=== PATIENT | female | born 1995 | race Hispanic/Latino ===

== ENCOUNTER → 2017-09-24 | Outpatient (CLI) | payer BC | END | disposition home or self-care (01) | LOC: RAH 09:12 → EDBD 09:30 | PROVIDERS: ATTEND Family Medicine | DX: R10.9 Unspecified abdominal pain (principal) | CPT/HCPCS: 76700 ==

== ENCOUNTER 2019-11-07 19:42 | Observation (INO) | payer BC, MEDICAID ==
[~2019-11-07] VITALS: Ht 162.6 cm; Wt 123.8 kg
[2019-11-07 20:24] LABS: APPEARANCE,URINE Clear (CLEAR); BILIRUBIN,URINE Negative (NEGATIVE); COLOR,URINE Yellow (YELLOW); GLUCOSE, URINE (UA) Negative (NEGATIVE); KETONES,URINE Negative (NEGATIVE); LEUKOCYTE ESTERASE ,URINE Negative (NEGATIVE); NITRATE,URINE Negative (NEGATIVE); OCCULT BLOOD,URINE Negative (NEGATIVE); PH,URINE 6.5 (5.0-8.0); PROTEIN,URINE Negative (NEGATIVE); UROBILINOGEN,URINE 0.2 mg/dL (0.2-1.0)
== END 2019-11-07 21:00 | disposition home or self-care (01) ==
LOC: EDH 19:42 → LDH 19:43
PROVIDERS: ADMIT Obstetrics & Gynecology; ATTEND Obstetrics & Gynecology
DX: O36.8120 Decreased fetal movements, second trimester, not applicable or unspecified (principal); Z3A.24 24 weeks gestation of pregnancy
CPT/HCPCS: 81003; 99284; G0378

== ENCOUNTER 2019-12-17 21:29 | Observation (INO) | payer MEDICAID ==
[~2019-12-17] VITALS: Ht 162.6 cm; Wt 129.3 kg
[2019-12-17] MEDS ORDERED: LACTATED RINGERS 1000ML 1,000 ML IV PRN (21:45)
[2019-12-17 21:52] VITALS: BP 114/53
== END 2019-12-18 01:20 | disposition home or self-care (01) ==
LOC: EDH 21:29 → LDH 21:47
PROVIDERS: ADMIT Obstetrics & Gynecology; ATTEND Obstetrics & Gynecology
DX: O26.893 Other specified pregnancy related conditions, third trimester (principal); R10.30 Lower abdominal pain, unspecified; R51 Headache; Z3A.30 30 weeks gestation of pregnancy
CPT/HCPCS: 80305; 81001; 96360; 99284; G0378 ×4; J7120

== ENCOUNTER 2019-12-25 17:15 | Observation (INO) | payer MEDICAID ==
[~2019-12-25] VITALS: Ht 157.5 cm; Wt 129.7 kg
[2019-12-25 18:30] LABS: APPEARANCE,URINE Cloudy (CLEAR); BILIRUBIN,URINE Negative (NEGATIVE); COLOR,URINE Yellow (YELLOW); GLUCOSE, URINE (UA) Negative (NEGATIVE); KETONES,URINE Negative (NEGATIVE); LEUKOCYTE ESTERASE ,URINE Trace (NEGATIVE); NITRATE,URINE Negative (NEGATIVE); OCCULT BLOOD,URINE Negative (NEGATIVE); PH,URINE 7.5 (5.0-8.0); PROTEIN,URINE Negative (NEGATIVE); UROBILINOGEN,URINE 0.2 mg/dL (0.2-1.0)
[2019-12-25 18:42] LABS: RBC,URINE 0-1 /HPF (0-1)
[2019-12-25 18:43] LABS: BACTERIA,URINE Few /HPF (None Seen)
[2019-12-25 18:44] LABS: AMORPHOUS SEDIMENT,UR Rare /LPF (None Seen); COARSE GRANULAR CASTS,URINE 0-2 /LPF (None Seen); SQUAMOUS EPITHELIAL CELL,UR Few /HPF (0-2)
[2019-12-25] MEDS: LACTATED RINGERS 1000ML 1,000 ML IV PRN ×2 (19:07→20:25)
[2019-12-25] MEDS ORDERED: TERBUTALINE SULFATE VIAL 1MG/ML SQ ONE (20:14)
[2019-12-25] MEDS ORDERED: TERBUTALINE SULFATE VIAL 1MG/ML SQ PRN (20:15)
[2019-12-25] MEDS ORDERED: ACETAMINOPHEN 325 MG TAB PO PRN (20:45)
== END 2019-12-25 23:20 | disposition home or self-care (01) ==
LOC: EDH 17:15 → LDH 17:39
PROVIDERS: ADMIT Obstetrics & Gynecology; ATTEND Obstetrics & Gynecology
DX: O60.03 Preterm labor without delivery, third trimester (principal); Z3A.31 31 weeks gestation of pregnancy
CPT/HCPCS: 81001; 82948; 96372; 99284; G0378 ×6; J3105; J7120 ×2; 96360

== ENCOUNTER 2020-01-12 23:18 | Observation (INO) | payer MEDICAID ==
[~2020-01-12] VITALS: Ht 162.6 cm; Wt 132.0 kg
[2020-01-12 23:55] LABS: APPEARANCE,URINE Clear (CLEAR); BILIRUBIN,URINE Negative (NEGATIVE); COLOR,URINE Yellow (YELLOW); GLUCOSE, URINE (UA) Negative (NEGATIVE); KETONES,URINE Negative (NEGATIVE); LEUKOCYTE ESTERASE ,URINE Small (NEGATIVE); NITRATE,URINE Negative (NEGATIVE); OCCULT BLOOD,URINE Negative (NEGATIVE); PH,URINE 7.5 (5.0-8.0); PROTEIN,URINE Negative (NEGATIVE); UROBILINOGEN,URINE 0.2 mg/dL (0.2-1.0)
[2020-01-13 00:19] LABS: BACTERIA,URINE Few /HPF (None Seen); RBC,URINE 0-1 /HPF (0-1)
[2020-01-13 00:20] LABS: AMORPHOUS SEDIMENT,UR Few /LPF (None Seen)
== END 2020-01-13 00:46 | disposition home or self-care (01) ==
LOC: EDH 23:18 → LDH 23:35
PROVIDERS: ADMIT Obstetrics & Gynecology; ATTEND Obstetrics & Gynecology
DX: O26.893 Other specified pregnancy related conditions, third trimester (principal); R10.2 Pelvic and perineal pain; M54.5 Low back pain; Z3A.33 33 weeks gestation of pregnancy
CPT/HCPCS: 81001; 99284; G0378

== ENCOUNTER 2020-01-18 13:46 | Observation (INO) | payer MEDICAID ==
[~2020-01-18] VITALS: Ht 162.6 cm; Wt 130.6 kg
[2020-01-18 14:36] LABS: APPEARANCE,URINE Cloudy (CLEAR); BILIRUBIN,URINE Negative (NEGATIVE); COLOR,URINE Yellow (YELLOW); GLUCOSE, URINE (UA) Negative (NEGATIVE); KETONES,URINE Negative (NEGATIVE); LEUKOCYTE ESTERASE ,URINE Small (NEGATIVE); NITRATE,URINE Negative (NEGATIVE); OCCULT BLOOD,URINE Negative (NEGATIVE); PH,URINE 7.5 (5.0-8.0); PROTEIN,URINE Trace mg/dL (NEGATIVE)
[2020-01-18 14:55] LABS: RBC,URINE 0-1 /HPF (0-1)
[2020-01-18 14:56] LABS: BACTERIA,URINE Moderate /HPF (None Seen)
[2020-01-18 14:57] LABS: SQUAMOUS EPITHELIAL CELL,UR Moderate /HPF (0-2)
[2020-01-18 14:58] LABS: AMORPHOUS SEDIMENT,UR Few /LPF (None Seen)
[2020-01-18] MEDS ORDERED: LACTATED RINGERS 1000ML IV SCH (15:15)
[2020-01-18] MEDS ORDERED: PROMETHAZINE HCL 25 MG/ML 1ML AMPULE IM SCH (15:15)
== END 2020-01-18 15:55 | disposition home or self-care (01) ==
LOC: EDH 13:46 → LDH 13:47
PROVIDERS: ADMIT Obstetrics & Gynecology; ATTEND Obstetrics & Gynecology
DX: O21.9 Vomiting of pregnancy, unspecified (principal); O24.419 Gestational diabetes mellitus in pregnancy, unspecified control; M54.5 Low back pain; Z86.19 Personal history of other infectious and parasitic diseases; Z3A.34 34 weeks gestation of pregnancy
CPT/HCPCS: 81001; 87088; 96360; 99284; G0378 ×2; J7120; 96372

== ENCOUNTER 2020-01-30 17:45 | Observation (INO) | payer MEDICAID ==
[~2020-01-30] VITALS: Ht 162.6 cm; Wt 132.4 kg
[2020-01-30 18:30] VITALS: BP 127/61
[2020-01-30 19:23] LABS: APPEARANCE,URINE Clear (CLEAR); BILIRUBIN,URINE Negative (NEGATIVE); COLOR,URINE Yellow (YELLOW); GLUCOSE, URINE (UA) Negative (NEGATIVE); KETONES,URINE Negative (NEGATIVE); LEUKOCYTE ESTERASE ,URINE Large (NEGATIVE); NITRATE,URINE Negative (NEGATIVE); OCCULT BLOOD,URINE Negative (NEGATIVE); PROTEIN,URINE Negative (NEGATIVE); UROBILINOGEN,URINE 0.2 mg/dL (0.2-1.0)
[2020-01-30 19:40] LABS: BACTERIA,URINE Few /HPF (None Seen); RBC,URINE None Seen /HPF (0-1)
[2020-01-30] MEDS ORDERED: PREN1TAB80 PO (20:14)
[2020-01-30] MEDS ORDERED: CALC500T13 PO (20:14)
[2020-01-30] MEDS ORDERED: LACTATED RINGERS 1000ML IV PRN (20:15)
[2020-01-30] MEDS ORDERED: SIMETHICONE 80 MG TAB.CHEW PO SCH (20:15)
[2020-01-30] MEDS ORDERED: CEFTRIAXONE SODIUM 1 GM IVP SCH (20:15)
[2020-01-30] MEDS ORDERED: MAG HYDROX/AL HYDROX/SIMETH ES 30 ML SUSP UDCUP ONE (21:05)
[2020-01-30] MEDS ORDERED: MAG HYDROX/AL HYDROX/SIMETH ES 30 ML SUSP UDCUP PO SCH (21:15)
== END 2020-01-30 22:25 | disposition home or self-care (01) ==
LOC: EDH 17:45 → LDH 17:46
PROVIDERS: ADMIT Obstetrics & Gynecology; ATTEND Obstetrics & Gynecology
DX: O26.893 Other specified pregnancy related conditions, third trimester (principal); R10.13 Epigastric pain; R19.7 Diarrhea, unspecified; O24.419 Gestational diabetes mellitus in pregnancy, unspecified control; Z86.19 Personal history of other infectious and parasitic diseases; Z3A.36 36 weeks gestation of pregnancy
CPT/HCPCS: 81001; 87088; 96361; 96374; 99284; G0378 ×4; J0696; J7120; 96360

== ENCOUNTER 2020-02-13 11:10 | Inpatient (IN) | payer MEDICAID ==
[~2020-02-13] VITALS: Ht 162.6 cm; Wt 136.1 kg
[~2020-02-13 11:10] MED LIST: CALC500T13 PO; PREN1TAB80 PO
[2020-02-13 11:53] VITALS: BP 129/74
[2020-02-13 12:04] LABS: BASOPHILS % (AUTO) 0.3 % (0.0-5.0); EOSINOPHILS % (AUTO) 1.4 % (0.0-8.0); HEMATOCRIT 37.4 % (36-48); LYMPHOCYTES % (AUTO) 19.6 % (21.0-51.0); MEAN CORPUSCULAR HGB CONC 33.4 g/dL (32.0-36.0); MEAN CORPUSCULAR VOLUME 92.8 fL (79-99); MONOCYTES % (AUTO) 9.2 % (3.0-13.0); NEUTROPHILS % (AUTO) 68.4 % (40.0-77.0); PLATELET COUNT (AUTO) 188 K/uL (130-400); RED BLOOD CELL COUNT(AUTO) 4.03 MIL/uL (4.00-5.50); RED CELL DISTRIBUTION WIDTH 13.6 % (11.0-15.5); WHITE BLOOD COUNT (AUTO) 7.4 K/uL (4.8-10.8)
[2020-02-13 12:08] LABS: APPEARANCE,URINE Clear (CLEAR); BILIRUBIN,URINE Negative (NEGATIVE); COLOR,URINE Yellow (YELLOW); GLUCOSE, URINE (UA) Negative (NEGATIVE); KETONES,URINE Negative (NEGATIVE); LEUKOCYTE ESTERASE ,URINE Small (NEGATIVE); NITRATE,URINE Negative (NEGATIVE); OCCULT BLOOD,URINE Nonhemolyzed Trace (NEGATIVE); PROTEIN,URINE Negative (NEGATIVE); UROBILINOGEN,URINE 0.2 mg/dL (0.2-1.0)
[2020-02-13 12:15] LABS: BACTERIA,URINE Few /HPF (None Seen); INR 0.87 (0.85-1.15); PARTIAL THROMBOPLASTIN TIME 23.8 SEC (26.3-35.5); PROTHROMBIN TIME 9.4 SEC (9.6-11.6); RBC,URINE 0-1 /HPF (0-1); SQUAMOUS EPITHELIAL CELL,UR Moderate /HPF (0-2)
[2020-02-13 12:49] LABS: BILIRUBIN,TOTAL 0.1 mg/dL (0.2-1.0); CREATININE 0.6 mg/dL (0.5-1.5); POTASSIUM 3.9 mmol/L (3.5-5.1); URIC ACID 5.7 mg/dL (2.6-7.2)
[2020-02-13] MEDS ORDERED: LACTATED RINGERS 500 ML 500 ML IV PRN (13:00)
[2020-02-13] MEDS ORDERED: NALOXONE HCL 0.4 MG/1 ML ML IV PRN (13:00)
[2020-02-13] MEDS ORDERED: ROPIVACAINE 0.2% 100ML VIAL 100 ML EP PRN (13:00)
[2020-02-13] MEDS ORDERED: EPHEDRINE SULFATE 50 MG/ML AMPULE IVP PRN (13:00)
[2020-02-13] MEDS: LACTATED RINGERS 1000ML 1,000 ML IV PRN ×2 (14:56→20:12)
[2020-02-13] MEDS ORDERED: MISOPROSTOL 100 MCG TABLET VG PRN (15:00)
[2020-02-13] MEDS: BUTORPHANOL TARTRATE 2 MG/ML IVP PRN (20:11)
[2020-02-13] MEDS ORDERED: MISOPROSTOL 25 MCG TABLET VG SCH (21:00)
[2020-02-13] MEDS ORDERED: MISOPROSTOL 100 MCG TABLET VG SCH (22:00)
[2020-02-14] MEDS: LACTATED RINGERS 1000ML 1,000 ML IV PRN (03:38)
[2020-02-14] MEDS: BUTORPHANOL TARTRATE 2 MG/ML IVP PRN (03:48)
[2020-02-14] MEDS ORDERED: OXYTOCIN 10 USP UNITS/ML 20 UNIT in LACTATED RINGERS 1000ML 1,000 ML IV SCH (04:00)
[2020-02-14] MEDS ORDERED: OXYTOCIN-LR 20 UNITS/1000 ML 1,000 ML IV ONE ×2 (04:55→10:04)
[2020-02-14 08:14] LABS: HEPATITIS Bs ANTIGEN SCREEN P Negative (Negative)
[2020-02-14] MEDS ORDERED: FENTANYL CITRATE PF 50 MCG/1 ML 2ML VIAL ONE (08:41)
[2020-02-14] MEDS ORDERED: OXYTOCIN-LR 20 UNITS/1000 ML 1,000 ML IV SCH (10:00)
[2020-02-14] MEDS ORDERED: TRANEXAMIC ACID 1000MG/10ML IV PRN (10:00)
[2020-02-14] MEDS ORDERED: MISOPROSTOL 200 MCG TABLET PO PRN (10:00)
[2020-02-14] MEDS ORDERED: METHYLERGONOVINE MALEATE 0.2 MG/1 ML ML IM PRN (10:00)
[2020-02-14] MEDS ORDERED: ONDANSETRON HCL 4 MG/2 ML VIAL IVP PRN (11:45)
[2020-02-14] MEDS ORDERED: ACETAMINOPHEN 325 MG TAB PO PRN (14:45)
[2020-02-14] MEDS ORDERED: LANOLIN 30GM OINTMENT TP PRN (14:45)
[2020-02-14] MEDS ORDERED: WITCH HAZEL 1 PAD TP PRN (14:45)
[2020-02-14] MEDS ORDERED: MEASLES/MUMPS/RUBELLA VACCINE, LIVE 0.5 ML/VIAL SQ PRN (14:45)
[2020-02-14] MEDS ORDERED: BENZOCAINE/LANOLIN/ALOE VERA 60 ML AEROSOL TP PRN (14:45)
[2020-02-14] MEDS ORDERED: ACETAMINOPHEN-CODEINE 300/30MG TAB PO PRN (14:45)
[2020-02-14] MEDS ORDERED: DIPH,PERTUSS(ACELL),TET VAC/PF 0.5 ML VIAL IM PRN (14:45)
[2020-02-14 16:45] VITALS: BP 132/76
[2020-02-14] MEDS: IBUPROFEN 600 MG TABLET PO PRN ×2 (16:52→23:40)
[2020-02-14 19:30] VITALS: BP 128/76
[2020-02-14] MEDS: DOCUSATE SODIUM 100 MG CAP PO SCH (21:06)
[2020-02-14 23:40] VITALS: BP 130/79
[2020-02-15 03:07] VITALS: BP 107/53
[2020-02-15 07:35] VITALS: BP 121/70
[2020-02-15] MEDS: DOCUSATE SODIUM 100 MG CAP PO SCH ×2 (09:04→22:42)
[2020-02-15] MEDS: IBUPROFEN 600 MG TABLET PO PRN ×3 (09:05→22:45)
[2020-02-15 10:59] VITALS: BP 143/87
[2020-02-15 16:30] VITALS: BP 127/63
[2020-02-15 19:59] VITALS: BP 136/79
[2020-02-15 23:54] VITALS: BP 135/71
[2020-02-16 04:01] VITALS: BP 121/68
[2020-02-16 06:58] VITALS: BP 117/85
[2020-02-16] MEDS: DOCUSATE SODIUM 100 MG CAP PO SCH (08:32)
[2020-02-16] MEDS: IBUPROFEN 600 MG TABLET PO PRN (08:33)
--- NOTE | 2020-02-16 11:00 | NUR ---
pt is discharged. verbal and written discharge instructions given, pls refer to [facility]. informed of the follow up appointment, prescription given. informed to call the doctor for further concerns. pt voiced understanding to all things discussed. Addendum: 02/16/20 at 1503 by NELLY PETE RN Amended: Links added.
[2020-02-16 11:43] VITALS: BP 134/69
--- NOTE | 2020-02-16 11:55 | NUR ---
pt is dismissed in stable condition, brought to private car via wheelchair by Rufina Holden pcp Addendum: 02/16/20 at 1504 by NELLY PETE RN Amended: Links added.
== END 2020-02-16 11:55 | disposition home or self-care (01) | DRG 560 ==
LOC: LDH 11:10 → WSH 02-14 16:45 → PREOBSVTOIN 02-25 11:08
PROVIDERS: ADMIT Obstetrics & Gynecology; ATTEND Obstetrics & Gynecology
PROC: 10E0XZZ Delivery of Products of Conception, External Approach (ICD-10-PCS; principal; 2020-02-14)
PROC: 0KQM0ZZ Repair Perineum Muscle, Open Approach (ICD-10-PCS; 2020-02-14)
PROC: 3E0P7VZ Introduction of Hormone into Female Reproductive, Via Natural or Artificial Opening (ICD-10-PCS; 2020-02-14)
PROC: 3E033VJ Introduction of Other Hormone into Peripheral Vein, Percutaneous Approach (ICD-10-PCS; 2020-02-14)
PROC: 10907ZC Drainage of Amniotic Fluid, Therapeutic from Products of Conception, Via Natural or Artificial Opening (ICD-10-PCS; 2020-02-14)
PROC: 3E0234Z Introduction of Serum, Toxoid and Vaccine into Muscle, Percutaneous Approach (ICD-10-PCS; 2020-02-14)
PROC: 3E0134Z Introduction of Serum, Toxoid and Vaccine into Subcutaneous Tissue, Percutaneous Approach (ICD-10-PCS; 2020-02-14)
PROC: 3E0R3BZ Introduction of Anesthetic Agent into Spinal Canal, Percutaneous Approach (ICD-10-PCS; 2020-02-14)
PROC: 00HU33Z Insertion of Infusion Device into Spinal Canal, Percutaneous Approach (ICD-10-PCS; 2020-02-14)
DX: O14.04 Mild to moderate pre-eclampsia, complicating childbirth (principal); O24.420 Gestational diabetes mellitus in childbirth, diet controlled; O69.81X0 Labor and delivery complicated by cord around neck, without compression, not applicable or unspecified; O70.1 Second degree perineal laceration during delivery; O99.214 Obesity complicating childbirth; E66.9 Obesity, unspecified; Z3A.38 38 weeks gestation of pregnancy; Z37.0 Single live birth; Z23 Encounter for immunization
CPT/HCPCS: 36415; 76805; 80053; 81001; 82948; 84550; 85025; 85384; 85610; 85730; 86592; 86850; 86900; 86901; 87088; 87340; A4314; G0378; J0595; J2210; J2405; J2590; J3010; J3490; J7120

== ENCOUNTER 2024-02-07 21:35 | Emergency (ER) | payer MEDICAID, OTHER ==
[~2024-02-07] VITALS: Ht 162.6 cm; Wt 111.6 kg
[2024-02-07 21:55] LABS: APPEARANCE,URINE CLEAR (CLEAR); BILIRUBIN,URINE NEGATIVE (NEGATIVE); COLOR,URINE COLORLESS (YELLOW); GLUCOSE, URINE (UA) NEGATIVE (NEGATIVE); KETONES,URINE NEGATIVE (NEGATIVE); LEUKOCYTE ESTERASE ,URINE NEGATIVE Leu/uL (NEGATIVE); NITRATE,URINE NEGATIVE (NEGATIVE); OCCULT BLOOD,URINE SMALL (NEGATIVE); PH,URINE 5.5 (5.0-8.0); PROTEIN,URINE NEGATIVE (NEGATIVE); UROBILINOGEN,URINE 0.2 mg/dL (0.2-1.0)
[2024-02-07 21:58] LABS: ADD UA MICROSCOPIC YES
[2024-02-07 22:03] LABS: BACTERIA,URINE FEW /HPF (None Seen); RBC,URINE 0-1 /HPF (0-1); SQUAMOUS EPITHELIAL CELL,UR RARE /HPF (0-2)
[2024-02-07 22:05] LABS: BASOPHILS # (AUTO) 0.04 K/uL (0.00-0.20); BASOPHILS % (AUTO) 0.5 % (0.0-5.0); EOSINOPHILS # (AUTO) 0.52 K/uL (0.00-0.70); IMMATURE GRANULOCYTE ABSOLUTE 0.05 K/uL (0-1); LYMPHOCYTES # (AUTO) 2.4 K/uL (1.0-4.8); LYMPHOCYTES % (AUTO) 27.5 % (21.0-51.0); MEAN CORPUSCULAR HEMOGLOBIN 31.7 pg (27.0-33.0); MEAN CORPUSCULAR HGB CONC 33.8 g/dL (32.0-36.0); MEAN CORPUSCULAR VOLUME 93.5 fL (79-99); MONOCYTES # (AUTO) 0.5 K/uL (0.1-1.0); NEUTROPHILS # (AUTO) 5.1 K/uL (1.8-7.7); NEUTROPHILS % (AUTO) 59.4 % (40.0-77.0); PLATELET COUNT (AUTO) 185 K/uL (130-400); RED BLOOD CELL COUNT(AUTO) 4.17 MIL/uL (4.00-5.50); RED CELL DISTRIBUTION WIDTH 12.3 % (11.0-15.5); WHITE BLOOD COUNT (AUTO) 8.6 K/uL (4.8-10.8)
[2024-02-07 22:11] VITALS: TEMP 98.2
[2024-02-07 22:13] LABS: CREATININE 0.7 mg/dL (0.5-1.0)
[2024-02-07] MEDS: acetaMINOPHEN 500 MG TABLET PO ONE (22:33)
[2024-02-07] MEDS: 0.9%NACL 1000ML 1,000 ML IV ONE (22:34)
[2024-02-08 01:10] VITALS: BP 123/68; PULSE 67; RESP 19; O2SAT 100
== END 2024-02-08 01:13 | disposition home or self-care (01) ==
LOC: EDH 21:35
DX: O20.9 Hemorrhage in early pregnancy, unspecified (principal); O26.891 Other specified pregnancy related conditions, first trimester; R10.2 Pelvic and perineal pain; Z3A.01 Less than 8 weeks gestation of pregnancy; Z79.899 Other long term (current) drug therapy; Z98.890 Other specified postprocedural states
CPT/HCPCS: 99284; 76801; 80048; 84703; 84702; 85025; 86850; 86900; 86901; 81001; 81025; 36415; J7030

== ENCOUNTER 2024-03-30 20:44 | Emergency (ER) | payer OTHER ==
[~2024-03-30] VITALS: Ht 162.6 cm; Wt 118.4 kg
[2024-03-30 21:26] LABS: BASOPHILS # (AUTO) 0.03 K/uL (0.00-0.20); BASOPHILS % (AUTO) 0.4 % (0.0-5.0); EOSINOPHILS # (AUTO) 0.12 K/uL (0.00-0.70); EOSINOPHILS % (AUTO) 1.4 % (0.0-8.0); HEMATOCRIT 37.6 % (36-48); IMMATURE GRANULOCYTE ABSOLUTE 0.07 K/uL (0-1); LYMPHOCYTES # (AUTO) 1.1 K/uL (1.0-4.8); LYMPHOCYTES % (AUTO) 12.6 % (21.0-51.0); MEAN CORPUSCULAR HEMOGLOBIN 31.8 pg (27.0-33.0); MEAN CORPUSCULAR VOLUME 93.3 fL (79-99); MONOCYTES # (AUTO) 0.5 K/uL (0.1-1.0); MONOCYTES % (AUTO) 6.4 % (3.0-13.0); NEUTROPHILS # (AUTO) 6.5 K/uL (1.8-7.7); NEUTROPHILS % (AUTO) 78.4 % (40.0-77.0); PLATELET COUNT (AUTO) 161 K/uL (130-400); RED BLOOD CELL COUNT(AUTO) 4.03 MIL/uL (4.00-5.50); RED CELL DISTRIBUTION WIDTH 12.2 % (11.0-15.5); WHITE BLOOD COUNT (AUTO) 8.3 K/uL (4.8-10.8)
[2024-03-30 21:46] LABS: CREATININE 0.7 mg/dL (0.5-1.0); POTASSIUM 3.9 mmol/L (3.5-5.1)
[2024-03-30] MEDS: acetaMINOPHEN WITH coDEINE 1 TAB TAB PO ONE (22:36)
[2024-03-30 22:41] LABS: APPEARANCE,URINE CLOUDY (CLEAR); BILIRUBIN,URINE NEGATIVE (NEGATIVE); COLOR,URINE LIGHT-YELLOW (YELLOW); GLUCOSE, URINE (UA) NEGATIVE (NEGATIVE); KETONES,URINE NEGATIVE (NEGATIVE); LEUKOCYTE ESTERASE ,URINE 25 Leu/uL (NEGATIVE); NITRATE,URINE NEGATIVE (NEGATIVE); OCCULT BLOOD,URINE NEGATIVE (NEGATIVE); PH,URINE 6.5 (5.0-8.0); PROTEIN,URINE NEGATIVE (NEGATIVE); UROBILINOGEN,URINE 0.2 mg/dL (0.2-1.0)
[2024-03-30 22:56] LABS: ADD UA MICROSCOPIC YES
[2024-03-30] MEDS ORDERED: ACET-2079 PO (23:05)
[2024-03-30 23:06] LABS: BACTERIA,URINE RARE /HPF (None Seen); RBC,URINE 0-1 /HPF (0-1); SQUAMOUS EPITHELIAL CELL,UR MOD /HPF (0-2)
[2024-03-30 23:34] VITALS: BP 132/70; PULSE 82; RESP 18; TEMP 98.1; O2SAT 98
== END 2024-03-30 23:42 | disposition home or self-care (01) ==
LOC: EDH 20:44
DX: O20.9 Hemorrhage in early pregnancy, unspecified (principal); O26.891 Other specified pregnancy related conditions, first trimester; R51.9 Headache, unspecified; R10.2 Pelvic and perineal pain; R11.0 Nausea; Z3A.13 13 weeks gestation of pregnancy
CPT/HCPCS: 36415; 76801; 80048; 81001; 84702; 85025; 86850; 86900; 86901

== ENCOUNTER 2024-04-27 18:59 | Emergency (ER) | payer OTHER ==
[~2024-04-27] VITALS: Ht 160 cm; Wt 118.4 kg
[~2024-04-27 18:59] MED LIST changes: +ACET-2079 PO
[2024-04-27 19:27] VITALS: TEMP 98
--- NOTE | 2024-04-27 19:41 | ERN ---
ED Note History of Present Illness Stated Complaint: ABDOMINAL PAIN, 18WKS Chief Complaint: OB<20 weeks gest. Time Seen by MD: 19:05 Time Seen by Midlevel: 19:05 Dictation: The patient is a 29-year-old female with a history of inguinal hernia repair who presents to the emergency department with complaints of a periumbilical abdominal pain onset 4:45 p.m. today. Patient reports that yesterday she started with low back pain. Reports be [address] Luis. Patient denies any vaginal bleeding or discharge, fever, vomiting or diarrhea. Reports occasional nausea but nothing out of the ordinary. 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 Reported Medications Calcium Carbonate (Tums 500 mg Chew Tab) 1 Tab Tab.chew, 1 TAB PO DAILYDINNER PRN for HEARTBURN, TAB.CHEW 01/30/20 Vits W-Ca,Fe,FA(<1Mg) ( Vitamins) 1 Each Tablet, 1 EACH PO DAILY, TAB 01/30/20 Past Medical History Past Medical History: No Pertinent History Surgical History: Other Surgical History Other: RT INGUINAL HERNIA X 2; RT OVARIAN CYST LMP: Dec 24, 2023 : 2 Para: 1 Aborts: 0 RN Note Reviewed/Agreed w/PFSH: Yes Review of System Dictation Constitutional: Negative for fever,chills, and weight loss Eyes: Negative for injury, pain,redness, and discharge ENT: Negative for injury,pain or swelling Cardiovascular: Negative for chest pain, palpitations, and edema Respiratory: Negative for shortness of breath, cough, and wheezing, Abdomen/GI: Negative for , vomiting, diarrhea, and constipation. Positive for abdominal pain, nausea Back: Negative for injury and pain : Negative for injury, bleeding and discharge MS/Extremity: Negative for injury and deformity Skin: Negative for rash, and discoloration Neuro: Negative for headache, weakness, numbness, tingling, and seizure Psych: Negative for suicide ideation, homicidal ideation, and hallucinations Initial Vital Sign VS Vital Signs Date Time Temp Pulse Resp B/P (MAP) Pulse Ox O2 Delivery O2 Flow Rate FiO2 04/27/24 19:27 98.1 74 20 134/81 99 Room Air Physical Exam Dictation Vital Signs reviewed General Appearance: Alert, oriented x 3, no acute distress, well developed, no urished. Head and Face: non-traumatic. Eyes: PERRL, pink conjunctivas, eyelid no trauma, anterior chamber with arcus senilis. Ears: Pinnas intact and no signs of trauma or erythema ear canals clear and no discharge TM no erythema Nose: No discharge, no bleeding. Oropharynx: Mouth normal, tongue pink. pharynx clear,no erythema, tonsils no exudates, no abscesses noted, mucous me mbrane moist Neck: Supple, non-tender, no thyromegaly, no masses, no JVD, no bruits Breast:Deferred Chest:No tenderness, no crepitus, no paradoxical movement, no retractions Lungs:Clear, well-ventilated, symmetric, no rales, no wheezing, no rhonchi, no stridor, good breath sounds bilaterally Heart: Regular rate, regular rhythm, no murmur, no gallops Vascular: no peripheral edema, Abdomen: Soft, positive bowel sounds, nondistended, no guarding, nontender, no rebound, no masses no hepatomegaly, no splenomegaly, no Martínez's sign, no hernias. Rectal: Deferred Genital: Deferred Neurological: Normal speech, motor function intact, sensory function intact Musculoskeletal: Neck nontender, full range of motion, back nontender, full range of motion, Extremities: nontender, full range of motion Skin: Color pink, dry, no turgor, no rash, no lacerations, no abrasions, no contusions. Lymphatic: Deferred Results (Laboratory/Radiology) Laboratory/Radiology Laboratory Tests Test 04/27/24 00:00 04/27/24 19:58 04/27/24 20:05 Total Bilirubin 0.2 mg/dL (0.2-1.0) Direct Bilirubin < 0.1 mg/dL (0.0-0.3) Aspartate Amino Transf (AST/SGOT) 18 U/L (10-37) Alanine Aminotransferase (ALT/SGPT) 25 U/L (12-78) Alkaline Phosphatase 64 U/L (50-136) Total Protein 6.6 g/dL (6.0-8.3) Albumin 3.3 g/dL (3.5-5.0) L Lipase 26 U/L (16-77) White Blood Count 8.3 K/uL (4.8-10.8) Red Blood Count 3.90 MIL/uL (4.00-5.50) L Hemoglobin 12.2 g/dL (12.0-16.0) Hematocrit 35.9 % (36-48) L Mean Corpuscular Volume 92.1 fL (79-99) Mean Corpuscular Hemoglobin 31.3 pg (27.0-33.0) Mean Corpuscular Hemoglobin Concent 34.0 g/dL (32.0-36.0) Red Cell Distribution Width 12.7 % (11.0-15.5) Platelet Count 173 K/uL (130-400) Mean Platelet Volume 11.3 fL (7.5-10.5) H Immature Granulocyte % (Auto) 0.8 % (0-1) Neutrophils (%) (Auto) 67.3 % (40.0-77.0) Lymphocytes (%) (Auto) 23.7 % (21.0-51.0) Monocytes (%) (Auto) 6.1 % (3.0-13.0) Eosinophils (%) (Auto) 1.7 % (0.0-8.0) Basophils (%) (Auto) 0.4 % (0.0-5.0) Neutrophils # (Auto) 5.6 K/uL (1.8-7.7) Lymphocytes # (Auto) 2.0 K/uL (1.0-4.8) Monocytes # (Auto) 0.5 K/uL (0.1-1.0) Eosinophils # (Auto) 0.14 K/uL (0.00-0.70) Basophils # (Auto) 0.03 K/uL (0.00-0.20) Absolute Immature Granulocyte (auto 0.07 K/uL (0-1) Nucleated Red Blood Cells 0.0 % (0.0-0.19) Sodium Level 143 mmol/L (136-145) Potassium Level 3.8 mmol/L (3.5-5.1) Chloride Level 106 mmol/L (101-111) Carbon Dioxide Level 27 mmol/L (21-32) Blood Urea Nitrogen 7 mg/dL (7-18) Creatinine 0.6 mg/dL (0.5-1.0) Glomerular Filtration Rate Calc 125 mL/min (>90) Random Glucose 76 mg/dL (70-105) Total Calcium 8.9 mg/dL (8.5-10.1) Human Chorionic Gonadotropin, Quant 18895 mIU/mL (0-5) H Urine Color LIGHT-YELLOW (YELLOW) Urine Appearance CLEAR (CLEAR) Urine pH 6.0 (5.0-8.0) Urine Specific [place] 1.016 (1.001-1.031) Urine Protein NEGATIVE mg/dL (NEGATIVE) Urine Glucose (UA) NEGATIVE mg/dL (NEGATIVE) Urine Ketones 40 mg/dL (NEGATIVE) H Urine Occult Blood NEGATIVE (NEGATIVE) Urine Nitrate NEGATIVE (NEGATIVE) Urine Bilirubin NEGATIVE mg/dL (NEGATIVE) Urine Urobilinogen 0.2 mg/dL (0.2-1.0) Urine Leukocyte Esterase NEGATIVE Analia/uL Urine RBC 0-1 /HPF (0-1) Urine WBC 2-5 /HPF (0-1) H Urine Squamous Epithelial Cells FEW /HPF (0-2) Urine Bacteria FEW /HPF (None Seen) REASON: abd pain, 18 weeks ORDERING PHYSICIAN: LARISSA CARMONA PROCEDURE: OB >14 - US OB >14 WEEKS US OB >14 WEEKS HISTORY: abd pain, 18 weeks COMPARISON: None FINDINGS: There is zimmerman in variable presentation intrauterine gestation with heart rate of 141 bpm. There is normal activity. The amniotic fluid of maximum vertical pocket measures 5.35 cm. The placenta is posteriorly positioned and right lateral in position grade 1 maturity. The anatomic survey is limited with visualization of the stomach urinary bladder spine and four-chamber view of the heart. Estimated age is 18 weeks and the estimated weight is 215 g +/- 30 2 g. The cephalic index measures 75.1 percentile and the head circumference to abdominal circumference ratio measures 1.25 percentile. IMPRESSION: Zimmerman variable presentation gestation with positive heart tones and estimated weight of 1 lb. 8 oz. for this 18-week-old fetus. There is a limited but unremarkable anatomic survey. Labs Reviewed?: Yes ED Course ED Course Orders Procedure Category Date Status Time Cbc With Differential LAB 04/27/24 Complete 19:09 Abo/Rh BBK 04/27/24 Complete 19:09 Hcg,Quantitative LAB 04/27/24 Complete 19:09 Us Ob >14 Weeks US 04/27/24 Resulted 19:09 Basic Metabolic Panel LAB 04/27/24 Complete 19: Urinalysis Profile LAB 04/27/24 Complete 19:09 Acetaminophen 500mg PHA 04/27/24 Complete Tab (Tylenol 500mg T 19:30 0.9%Nacl 1000ml (Ns PHA 04/27/24 Complete 1000ml) 19:30 Lipase LAB 04/27/24 Complete 20:36 Hepatic Function Panel LAB 04/27/24 Complete 20:36 Current Medications Medications (Trade) Dose Ordered Sig/Elan Route PRN Reason Start Time Stop Time Status Last Admin Dose Admin Acetaminophen (TYLenol 500MG TAB) 1,000 mg ONCE ONCE PO 04/27/24 19:30 04/27/24 19:31 DC 04/27/24 20:04 Sodium Chloride 1,000 ml @ 0 mls/hr ONCE ONCE IV 04/27/24 19:30 04/27/24 19:31 DC 04/27/24 20:04 Vital Signs Date Time Temp Pulse Resp B/P (MAP) Pulse Ox O2 Delivery O2 Flow Rate FiO2 04/27/24 19:27 98.1 74 20 134/81 99 Room Air Medical Decision Making MDM The patient is a 29-year-old female with a history of inguinal hernia repair who presents to the emergency department with complaints of a periumbilical abdominal pain onset 4:45 p.m. today. Patient reports that yesterday she started with low back pain. Reports be [address] Luis. Patient denies any vaginal bleeding or discharge, fever, vomiting or diarrhea. Reports occasional nausea but nothing out of the ordinary. CBC showed no electrolyte imbalance, no anemia, chemistry showed no electrolyte imbalance, hCG [id number]. Ob ultrasound revealed a Zimmerman fetus with positive heart tones. Patient reports some improving in pain but denies anymore pain medications. Patient reports that she has an appointment to see Dr. Luis tomorrow in the morning. Labs and imaging discussed with the patient who agrees to be discharged. Differential diagnosis: Electrolyte imbalance, UTI, demise, threatened , placenta previa, Need for hospitalization: Patient does not meet criteria for hospitalization. There are no social concerns with this patient. DX & DISP Disposition: Discharge Departure Impression: Primary Impression: Abdominal pain during Additional Impression: 18 weeks gestation of Condition: Stable Additional Instructions: Please follow up with Dr. Luis tomorrow morning. If symptoms worsen, severe abdominal pain or vaginal bleeding please return to ER. FOLLOW-UP WITH PRIMARY CARE PROVIDER IN 1 TO 2 DAYS. TAKE MEDICATIONS DIRECTED HERE IN THE EMERGENCY ROOM. OKAY TO CONTINUE HOME MEDICATIONS UNLESS OTHERWISE DISCUSSED DURING YOUR VISIT IN THE EMERGENCY ROOM TODAY. RETURN TO YOUR NEAREST EMERGENCY ROOM IF SYMPTOMS WORSEN OR IF THERE IS NO IMPROVEMENT. CALL 911 IF YOU NEED IMMEDIATE ASSISTANCE. TAKE TYLENOL [id number] NEEDED AND IF NO CONTRAINDICATIONS ARE PRESENT. INCREASE ORAL HYDRATION. A WOUND CULTURE OR URINE CULTURE WAS ORDERED HERE IN THE EMERGENCY ROOM DEPARTMENT PLEASE FOLLOW-UP WITH PRIMARY CARE PROVIDER AND ADVISE THEM TO GET REPEAT PORTS FROM OUR FACILITY. IF YOU HAD ANY MAEVE WRAP/SPLINTS THAT WERE APPLIED HERE, PLEASE DO NOT REMOVE THEM UNTIL YOU SEE YOUR PRIMARY CARE OR SPECIALTY. Referrals: JUAN MANUEL LUIS MD (PCP) Time of Disposition: 22:15 I have reviewed the case, and I agree with, Diagnosis and Plan LARISSA CARMONAP Apr 27, 2024 19:41
[2024-04-27] MEDS: acetaMINOPHEN 500 MG TABLET PO ONE (20:04)
[2024-04-27] MEDS: 0.9%NACL 1000ML 1,000 ML IV ONE (20:04)
[2024-04-27 20:06] LABS: BASOPHILS # (AUTO) 0.03 K/uL (0.00-0.20); BASOPHILS % (AUTO) 0.4 % (0.0-5.0); EOSINOPHILS # (AUTO) 0.14 K/uL (0.00-0.70); EOSINOPHILS % (AUTO) 1.7 % (0.0-8.0); HEMATOCRIT 35.9 % (36-48); IMMATURE GRANULOCYTE ABSOLUTE 0.07 K/uL (0-1); LYMPHOCYTES % (AUTO) 23.7 % (21.0-51.0); MEAN CORPUSCULAR HEMOGLOBIN 31.3 pg (27.0-33.0); MEAN CORPUSCULAR VOLUME 92.1 fL (79-99); MONOCYTES # (AUTO) 0.5 K/uL (0.1-1.0); MONOCYTES % (AUTO) 6.1 % (3.0-13.0); NEUTROPHILS # (AUTO) 5.6 K/uL (1.8-7.7); NEUTROPHILS % (AUTO) 67.3 % (40.0-77.0); PLATELET COUNT (AUTO) 173 K/uL (130-400); RED CELL DISTRIBUTION WIDTH 12.7 % (11.0-15.5); WHITE BLOOD COUNT (AUTO) 8.3 K/uL (4.8-10.8)
[2024-04-27 20:13] LABS: APPEARANCE,URINE CLEAR (CLEAR); BILIRUBIN,URINE NEGATIVE (NEGATIVE); COLOR,URINE LIGHT-YELLOW (YELLOW); GLUCOSE, URINE (UA) NEGATIVE (NEGATIVE); KETONES,URINE 40 mg/dL (NEGATIVE); LEUKOCYTE ESTERASE ,URINE NEGATIVE Leu/uL (NEGATIVE); NITRATE,URINE NEGATIVE (NEGATIVE); OCCULT BLOOD,URINE NEGATIVE (NEGATIVE); PROTEIN,URINE NEGATIVE (NEGATIVE); UROBILINOGEN,URINE 0.2 mg/dL (0.2-1.0)
[2024-04-27 20:19] LABS: ADD UA MICROSCOPIC YES
[2024-04-27 20:21] LABS: BACTERIA,URINE FEW /HPF (None Seen); RBC,URINE 0-1 /HPF (0-1); SQUAMOUS EPITHELIAL CELL,UR FEW /HPF (0-2)
[2024-04-27 20:45] LABS: CREATININE 0.6 mg/dL (0.5-1.0); POTASSIUM 3.8 mmol/L (3.5-5.1)
[2024-04-27 20:59] LABS: ALANINE AMINOTRANSFERASE 25 U/L (12-78); ALBUMIN 3.3 g/dL (3.5-5.0); ASPARTATE AMINOTRANSFERASE 18 U/L (10-37); BILIRUBIN,DIRECT < 0.1 mg/dL (0.0-0.3); BILIRUBIN,TOTAL 0.2 mg/dL (0.2-1.0); TOTAL PROTEIN, SERUM 6.6 g/dL (6.0-8.3)
--- NOTE | 2024-04-27 21:32 | HMCIMG ---
US OB >14 WEEKS HISTORY: abd pain, 18 weeks COMPARISON: None FINDINGS: There is painting in variable presentation intrauterine gestation with heart rate of 141 bpm. There is normal activity. The amniotic fluid of maximum vertical pocket measures 5.35 cm. The placenta is posteriorly positioned and right lateral in position grade 1 maturity. The anatomic survey is limited with visualization of the stomach urinary bladder spine and four-chamber view of the heart. Estimated age is 18 weeks and the estimated weight is 215 g +/- 30 2 g. The cephalic index measures 75.1 percentile and the head circumference to abdominal circumference ratio measures 1.25 percentile. IMPRESSION: Painting variable presentation gestation with positive heart tones and estimated weight of 1 lb. 8 oz. for this 18-week-old fetus. There is a limited but unremarkable anatomic survey.
[2024-04-27 22:30] VITALS: BP 136/81; PULSE 81; RESP 18; O2SAT 99
== END 2024-04-27 22:40 | disposition home or self-care (01) ==
LOC: EDH 18:59
DX: O26.892 Other specified pregnancy related conditions, second trimester (principal); R10.84 Generalized abdominal pain; R10.2 Pelvic and perineal pain; Z3A.18 18 weeks gestation of pregnancy; Z79.899 Other long term (current) drug therapy; Z98.890 Other specified postprocedural states
CPT/HCPCS: 99284; 76805; 80076; 80048; 84702; 83690; 85025; 86900; 86901; 81001; 36415; J7030